=== PATIENT | male | born 1990 | race Hispanic/Latino ===

== ENCOUNTER → 2022-04-14 | Outpatient (CLI) | payer OTHER | LOC: M RAD 07:45 | PROVIDERS: ATTEND Physician Assistant | DX: M84.361A Stress fracture, right tibia, initial encounter for fracture (principal); M84.362A Stress fracture, left tibia, initial encounter for fracture; X58.XXXA Exposure to other specified factors, initial encounter; Y92.9 Unspecified place or not applicable | CPT/HCPCS: 78315; A9503 ==

== ENCOUNTER 2024-07-23 12:51 | Emergency (ER) | payer OTHER ==
[~2024-07-23] VITALS: Ht 172.7 cm; Wt 63.6 kg
[2024-07-23] MEDS ORDERED: ibuprofen PO (13:20)
[2024-07-23 14:00] LABS: HEMATOCRIT 48.1 % (42.0-52.0); HEMOGLOBIN 15.7 g/dl (13.5-17.5); MEAN CORPUSCULAR HEMOGLOBIN 29.8 pg (27.0-33.0); MEAN CORPUSCULAR HGB CONC 32.6 g/dl (32.0-36.5); MEAN CORPUSCULAR VOLUME 91.3 fl (80.0-96.0); PLATELET COUNT, AUTOMATED 221 10^3/uL (150-450); RED BLOOD COUNT 5.27 10^6/uL (4.30-6.10); WHITE BLOOD COUNT 7.5 10^3/uL (4.0-10.0)
[2024-07-23 14:26] LABS: ETHYL ALCOHOL (ETHANOL) < 0.003 % (0.000-0.010)
[2024-07-23 14:28] LABS: ALBUMIN 4.1 G/DL (3.2-5.2); ALKALINE PHOSPHATASE 82 U/L (40-129); ALT/SGPT 36 U/L (7.0-40); AST/SGOT 30 U/L (<34); BILIRUBIN,DIRECT 0.1 MG/DL (<0.4); BILIRUBIN,TOTAL 0.3 MG/DL (0.3-1.2); BLOOD UREA NITROGEN 10 MG/DL (9-23); CALCIUM LEVEL 9.2 MG/DL (8.5-10.1); CARBON DIOXIDE LEVEL 31 MMOL/L (20-31); CHLORIDE LEVEL 105 MMOL/L (98-107); GLOMERULAR FILTRATION RATE > 60.0 (>60); GLUCOSE, FASTING 93 MG/DL (60-100); POTASSIUM SERUM 4.2 MMOL/L (3.5-5.1); SALICYLATE LEVEL < 3.0 MG/DL (<30); SODIUM LEVEL 140 MMOL/L (136-145); TOTAL PROTEIN 7.3 G/DL (5.7-8.2)
[2024-07-23 14:30] LABS: THYROID STIMULATING HORMONE 1.175 uIU/ML (0.55-4.78)
[2024-07-23 14:37] LABS: AMPHETAMINES LEVEL URINE NEGATIVE (NEGATIVE); BARBITURATES URINE NEGATIVE (NEGATIVE); BENZODIAZEPINES URINE NEGATIVE (NEGATIVE); CANNABINOIDS URINE NEGATIVE (NEGATIVE); COCAINE METABOLITE URINE NEGATIVE (NEGATIVE); METHADONE URINE NEGATIVE (NEGATIVE); OPIATES URINE NEGATIVE (NEGATIVE); PHENCYCLIDINE URINE NEGATIVE (NEGATIVE)
[2024-07-23 15:24] VITALS: BP 125/67; TEMP 97.4; O2SAT 98
== END 2024-07-23 15:41 | disposition home or self-care (01) ==
LOC: M ED 12:51
DX: F43.0 Acute stress reaction (principal); Z79.1 Long term (current) use of non-steroidal anti-inflammatories (NSAID)

== ENCOUNTER 2024-11-18 08:05 | Inpatient (IN) | payer OTHER ==
[~2024-11-18] VITALS: Ht 172.7 cm; Wt 68.2 kg
[~2024-11-18 08:05] MED LIST: ibuprofen PO
[2024-11-18 08:37] LABS: PLATELET COUNT, AUTOMATED 217 10^3/uL (150-450)
[2024-11-18] MEDS ORDERED: VITA100093 PO (08:37)
[2024-11-18] MEDS ORDERED: FLUO-290 PO (08:37)
[2024-11-18] MEDS ORDERED: HOME MED LIST COMPLETE! XX SCH (08:55)
[2024-11-18 09:06] LABS: ETHYL ALCOHOL (ETHANOL) < 0.003 % (0.000-0.010)
[2024-11-18 09:07] LABS: SALICYLATE LEVEL < 3.0 MG/DL (<30)
[2024-11-18 09:08] LABS: ALT/SGPT 23 U/L (7.0-40); AST/SGOT 25 U/L (<34); CALCIUM LEVEL 9.7 MG/DL (8.5-10.1); CARBON DIOXIDE LEVEL 24 MMOL/L (20-31); CHLORIDE LEVEL 106 MMOL/L (98-107); CREATININE FOR GFR 1.30 MG/DL (0.70-1.30); GLOMERULAR FILTRATION RATE 74.9 (>60); POTASSIUM SERUM 3.9 MMOL/L (3.5-5.1); SODIUM LEVEL 144 MMOL/L (136-145)
[2024-11-18 13:44] LABS: AMPHETAMINES LEVEL URINE NEGATIVE (NEGATIVE); BARBITURATES URINE NEGATIVE (NEGATIVE); BENZODIAZEPINES URINE NEGATIVE (NEGATIVE); CANNABINOIDS URINE NEGATIVE (NEGATIVE); COCAINE METABOLITE URINE NEGATIVE (NEGATIVE); METHADONE URINE NEGATIVE (NEGATIVE); OPIATES URINE NEGATIVE (NEGATIVE); PHENCYCLIDINE URINE NEGATIVE (NEGATIVE)
[2024-11-18] MEDS ORDERED: IBUPROFEN 400 MG TAB PO PRN (20:30)
[2024-11-18] MEDS ORDERED: MOM 30 ML SUSPENSION UDC PO PRN (20:30)
[2024-11-18] MEDS ORDERED: MAALOX 30 ML SUSP *UDC PO PRN (20:30)
[2024-11-19] MEDS: traZODone 50 MG TAB PO PRN (01:37)
[2024-11-19] MEDS: ACETAMINOPHEN 325 MG TAB PO PRN (01:37)
[2024-11-19 06:35] VITALS: BP 140/71; TEMP 98.3; O2SAT 98
[2024-11-19] MEDS: VITAMIN D 1,000 INTERNATIONAL UNITS TABLET PO SCH (09:38)
[2024-11-19 15:22] VITALS: BP 108/84; TEMP 97.1; O2SAT 97
[2024-11-20 06:27] VITALS: BP 113/58; TEMP 97.6; O2SAT 98
[2024-11-20] MEDS: FLUoxetine 20 MG CAP PO SCH (08:02)
[2024-11-21 06:11] VITALS: BP 108/59; TEMP 97.1; O2SAT 98
[2024-11-21 15:01] VITALS: BP 115/58; TEMP 97.1; O2SAT 97
[2024-11-22 06:55] VITALS: BP 103/59; TEMP 97.3; O2SAT 97
[2024-11-22 15:17] VITALS: BP 119/59; TEMP 98; O2SAT 99
[2024-11-23 06:10] VITALS: BP 95/51; TEMP 97.6; O2SAT 96
[2024-11-23] MEDS: FLUoxetine 20 MG CAP PO SCH (08:57)
[2024-11-23 14:00] VITALS: BP 112/67; TEMP 97.7; O2SAT 98
[2024-11-23] MEDS: DOXEPIN 25 MG CAP PO SCH (20:00)
[2024-11-24 06:33] VITALS: BP_SYST 111; BP_SYST 138; BP_DIAS 57; BP_DIAS 85; TEMP 97.7; O2SAT 98
[2024-11-24 14:30] VITALS: BP 131/68; TEMP 97.5; O2SAT 98
[2024-11-25 06:08] VITALS: BP 102/59; TEMP 97.8; O2SAT 98
[2024-11-25 16:22] VITALS: BP 130/55; TEMP 98.1; O2SAT 97
[2024-11-25] MEDS: DOXEPIN 25 MG CAP PO SCH (20:21)
[2024-11-26 07:02] VITALS: BP 118/58; TEMP 97.3; O2SAT 100
[2024-11-26 15:15] VITALS: BP 127/64; TEMP 98.3; O2SAT 97
[2024-11-27 06:47] VITALS: BP 113/54; TEMP 98.3; O2SAT 99
[2024-11-27 15:23] VITALS: BP 123/75; TEMP 97.4; O2SAT 99
[2024-11-28 06:34] VITALS: BP 131/63; TEMP 97; O2SAT 100
[2024-11-28 15:43] VITALS: BP 120/75; TEMP 98.3; O2SAT 95
[2024-11-29] MEDS ORDERED: HYDR-3363 PO (00:29)
[2024-11-29] MEDS ORDERED: FLUO-365 PO (00:29)
[2024-11-29] MEDS ORDERED: DOXE25CA PO (00:29)
[2024-11-29 06:48] VITALS: BP 100/62; TEMP 98.5; O2SAT 100
== END 2024-11-29 12:12 | disposition home or self-care (01) | DRG 885 ==
LOC: M ED 08:05 → M ED INP 20:27 → M PSY 11-19 01:18
PROVIDERS: ADMIT Psychiatry & Neurology Neurology; ATTEND Psychiatry & Neurology Neurology
DX: F33.1 Major depressive disorder, recurrent, moderate (principal); R45.851 Suicidal ideations; F41.9 Anxiety disorder, unspecified; J45.909 Unspecified asthma, uncomplicated; Z79.899 Other long term (current) drug therapy; Z91.51 Personal history of suicidal behavior

== ENCOUNTER 2025-01-20 14:22 | Inpatient (IN) | payer OTHER ==
[~2025-01-20] VITALS: Ht 172.7 cm; Wt 70.0 kg
[~2025-01-20 14:22] MED LIST changes: +DOXE25CA PO; +FLUO-290 PO; +FLUO-365 PO; +HYDR-3363 PO; +VITA100093 PO
[2025-01-20] MEDS ORDERED: TRAZ-252 PO (14:40)
[2025-01-20] MEDS ORDERED: OLAN15TA69 PO (14:40)
[2025-01-20 15:09] LABS: PLATELET COUNT, AUTOMATED 199 10^3/uL (150-450)
[2025-01-20 15:43] LABS: ALT/SGPT 36 U/L (7.0-40); AST/SGOT 55 U/L (<34); CALCIUM LEVEL 9.0 MG/DL (8.5-10.1); CARBON DIOXIDE LEVEL 26 MMOL/L (20-31); CHLORIDE LEVEL 106 MMOL/L (98-107); CREATININE FOR GFR 0.96 MG/DL (0.70-1.30); GLOMERULAR FILTRATION RATE > 90.0 (>60); POTASSIUM SERUM 4.0 MMOL/L (3.5-5.1); SALICYLATE LEVEL < 3.0 MG/DL (<30); SODIUM LEVEL 141 MMOL/L (136-145)
[2025-01-20 15:45] LABS: AMPHETAMINES LEVEL URINE NEGATIVE (NEGATIVE); BARBITURATES URINE NEGATIVE (NEGATIVE); BENZODIAZEPINES URINE NEGATIVE (NEGATIVE); COCAINE METABOLITE URINE NEGATIVE (NEGATIVE); ETHYL ALCOHOL (ETHANOL) < 0.003 % (0.000-0.010)
[2025-01-20 15:46] LABS: CANNABINOIDS URINE NEGATIVE (NEGATIVE); METHADONE URINE NEGATIVE (NEGATIVE); OPIATES URINE NEGATIVE (NEGATIVE); PHENCYCLIDINE URINE NEGATIVE (NEGATIVE)
[2025-01-20] MEDS ORDERED: FLUO-365 PO (17:25)
[2025-01-20] MEDS ORDERED: HOME MED LIST COMPLETE! XX SCH (17:25)
[2025-01-20] MEDS ORDERED: MOM 30 ML SUSPENSION UDC PO PRN (18:50)
[2025-01-20] MEDS ORDERED: MAALOX 30 ML SUSP *UDC PO PRN (18:50)
[2025-01-20 22:03] VITALS: BP 112/63; TEMP 97.1; O2SAT 99
[2025-01-20] MEDS: traZODone 50 MG TAB PO PRN (22:42)
[2025-01-20] MEDS: IBUPROFEN 400 MG TAB PO PRN (22:43)
[2025-01-21 06:32] VITALS: BP 93/46; TEMP 98.2; O2SAT 97
[2025-01-21] MEDS: FLUoxetine 20 MG CAP PO SCH (09:37)
[2025-01-21] MEDS: VITAMIN D 1,000 INTERNATIONAL UNITS TABLET PO SCH (09:37)
[2025-01-21] MEDS: ACETAMINOPHEN 325 MG TAB PO PRN (13:24)
[2025-01-21 15:20] VITALS: BP 129/65; TEMP 97.8; O2SAT 96
[2025-01-22 06:41] VITALS: BP 108/59; TEMP 97.9; O2SAT 98
[2025-01-22] MEDS ORDERED: OLANZapine ORAL DISINTEGRATING TAB 5MG PO PRN (10:05)
[2025-01-22] MEDS: busPIRone 5 MG TAB PO SCH (10:14)
[2025-01-22 15:14] VITALS: BP 126/70; TEMP 97.8; O2SAT 95
[2025-01-23 06:51] VITALS: BP 98/56; TEMP 97.7; O2SAT 98
[2025-01-23] MEDS: BENZTROPINE 0.5 MG TAB PO ONE (10:07)
[2025-01-23 16:49] VITALS: BP 132/68; TEMP 97.6; O2SAT 97
[2025-01-24 06:31] VITALS: BP 108/72; TEMP 97.7; O2SAT 98
[2025-01-24 15:35] VITALS: BP 121/60; TEMP 97.8; O2SAT 97
[2025-01-25 06:45] VITALS: BP 148/86; TEMP 97.9; O2SAT 97
[2025-01-25 15:44] VITALS: BP 121/68; TEMP 97.3; O2SAT 95
[2025-01-26 06:35] VITALS: BP 117/54; TEMP 98.3; O2SAT 96
[2025-01-26 15:48] VITALS: BP 128/56; TEMP 97.9; O2SAT 96
[2025-01-27 06:37] VITALS: BP 99/65; TEMP 98.7; O2SAT 99
[2025-01-27] MEDS ORDERED: FLUO40CA PO (12:50)
[2025-01-27] MEDS ORDERED: ABIL1TAB11 PO (12:50)
[2025-01-27] MEDS ORDERED: TRAZ-252 PO (12:50)
== END 2025-01-27 14:45 | disposition home or self-care (01) | DRG 885 ==
LOC: M ED 14:22 → M ED INP 18:46 → M PSY 22:01
PROVIDERS: ADMIT Psychiatry & Neurology Neurology; ATTEND Psychiatry & Neurology Neurology
DX: F33.2 Major depressive disorder, recurrent severe without psychotic features (principal); R45.851 Suicidal ideations; R45.850 Homicidal ideations; J45.909 Unspecified asthma, uncomplicated; D72.829 Elevated white blood cell count, unspecified; R74.01 Elevation of levels of liver transaminase levels

== ENCOUNTER 2025-03-12 12:47 | Inpatient (IN) | payer OTHER ==
[~2025-03-12] VITALS: Ht 172.7 cm; Wt 63.6 kg
[~2025-03-12 12:47] MED LIST changes: +ABIL1TAB11 PO; +FLUO40CA PO; +OLAN15TA69 PO; +TRAZ-252 PO
[2025-03-12 13:46] LABS: PLATELET COUNT, AUTOMATED 281 10^3/uL (150-450)
[2025-03-12 14:04] LABS: PHENCYCLIDINE URINE NEGATIVE (NEGATIVE)
[2025-03-12 14:05] LABS: AMPHETAMINES LEVEL URINE NEGATIVE (NEGATIVE); BARBITURATES URINE NEGATIVE (NEGATIVE); BENZODIAZEPINES URINE NEGATIVE (NEGATIVE); CANNABINOIDS URINE NEGATIVE (NEGATIVE); COCAINE METABOLITE URINE NEGATIVE (NEGATIVE); METHADONE URINE NEGATIVE (NEGATIVE); OPIATES URINE NEGATIVE (NEGATIVE)
[2025-03-12 14:07] LABS: ETHYL ALCOHOL (ETHANOL) 0.005 % (0.000-0.010)
[2025-03-12 14:09] LABS: SALICYLATE LEVEL < 3.0 MG/DL (<30)
[2025-03-12 14:10] LABS: ALT/SGPT 28 U/L (7.0-40); AST/SGOT 20 U/L (<34); CALCIUM LEVEL 9.2 MG/DL (8.5-10.1); CARBON DIOXIDE LEVEL 29 MMOL/L (20-31); CHLORIDE LEVEL 105 MMOL/L (98-107); CREATININE FOR GFR 0.99 MG/DL (0.70-1.30); GLOMERULAR FILTRATION RATE > 90.0 (>60); POTASSIUM SERUM 3.9 MMOL/L (3.5-5.1); SODIUM LEVEL 143 MMOL/L (136-145)
[2025-03-12] MEDS ORDERED: MAALOX 30 ML SUSP *UDC PO PRN (14:50)
[2025-03-12] MEDS ORDERED: MOM 30 ML SUSPENSION UDC PO PRN (14:50)
[2025-03-12] MEDS ORDERED: OLAN1TAB20 PO (15:14)
[2025-03-12] MEDS ORDERED: FLUO40CA PO (15:14)
[2025-03-12] MEDS ORDERED: ARIP1TAB6 PO (15:14)
[2025-03-12] MEDS ORDERED: HOME MED LIST COMPLETE! XX SCH (15:15)
[2025-03-12 17:09] VITALS: BP 126/71; TEMP 97.7; O2SAT 98
[2025-03-13 07:02] VITALS: BP 100/50; TEMP 97.7
[2025-03-13] MEDS: FLUZONE VACCINE TRI PF(25-26) 0.5ML SYRINGE IM.IMMUN ONE (09:10)
[2025-03-13] MEDS: buPROPion **XL** 150 MG TABLET PO SCH (11:01)
[2025-03-13] MEDS: risperiDONE 0.5 MG TAB PO SCH (11:01)
[2025-03-13 15:20] VITALS: BP 110/60; TEMP 96.9; O2SAT 99
[2025-03-13 20:32] VITALS: BP 110/60; TEMP 96.9; O2SAT 99
[2025-03-13] MEDS: traZODone 50 MG TAB PO PRN (20:55)
[2025-03-14 06:49] VITALS: BP 97/55; TEMP 97.9; O2SAT 97
[2025-03-14] MEDS ORDERED: PSEUDOEPHEDRINE 30 MG TAB PO PRN (09:05)
[2025-03-14 15:50] VITALS: BP 113/63; TEMP 97.5; O2SAT 97
[2025-03-15 06:31] VITALS: BP 114/55; TEMP 97.6; O2SAT 98
[2025-03-15 15:45] VITALS: BP 115/67; TEMP 97.6; O2SAT 97
[2025-03-16 06:25] VITALS: BP 100/53; TEMP 98.8; O2SAT 100
[2025-03-16 09:25] VITALS: BP 117/65
[2025-03-16 18:39] VITALS: BP 126/61; TEMP 97.6; O2SAT 95
[2025-03-17 06:42] VITALS: BP 107/59; TEMP 98.5; O2SAT 98
[2025-03-17] MEDS: ACETAMINOPHEN 325 MG TAB PO PRN (08:55)
[2025-03-17 16:22] VITALS: BP 130/69; TEMP 97.3; O2SAT 97
[2025-03-17] MEDS: RISPERIDONE 1 MG TAB PO SCH (20:32)
[2025-03-17] MEDS: IBUPROFEN 400 MG TAB PO PRN (20:33)
[2025-03-18 06:43] VITALS: BP 114/60; TEMP 98.3; O2SAT 96
[2025-03-18 17:05] VITALS: BP 120/73; TEMP 97.9; O2SAT 99
[2025-03-19 06:29] VITALS: BP 113/54; TEMP 98.4; O2SAT 95
[2025-03-19 16:23] VITALS: BP 117/65; TEMP 97.1; O2SAT 98
[2025-03-20 06:39] VITALS: BP 112/62; TEMP 97.3; O2SAT 98
[2025-03-20] MEDS: buPROPion **XL** 150 MG TABLET PO SCH (08:32)
[2025-03-20 16:06] VITALS: BP 111/66; TEMP 97.4; O2SAT 100
[2025-03-21 06:34] VITALS: BP 135/75; TEMP 98.5; O2SAT 95
[2025-03-21 16:18] VITALS: BP 124/60; TEMP 98.1; O2SAT 96
[2025-03-22 06:30] VITALS: BP 114/60; TEMP 98; O2SAT 97
[2025-03-22 14:41] VITALS: BP 124/79; TEMP 97.8; O2SAT 98
[2025-03-23 06:15] VITALS: BP 113/56; TEMP 98.4; O2SAT 97
[2025-03-23 15:48] VITALS: BP 121/71; TEMP 98.5; O2SAT 96
[2025-03-23] MEDS ORDERED: BUPR150T12 PO (23:16)
[2025-03-23] MEDS ORDERED: TRAZ-252 PO (23:16)
[2025-03-23] MEDS ORDERED: RISP-105 PO (23:16)
[2025-03-24 06:37] VITALS: BP 123/71; TEMP 98.5; O2SAT 98
== END 2025-03-24 10:36 | disposition home or self-care (01) | DRG 885 ==
LOC: M ED 12:47 → M ED INP 14:49 → M PSY 17:07
PROVIDERS: ADMIT General Practice; ATTEND General Practice
DX: F33.1 Major depressive disorder, recurrent, moderate (principal); R45.851 Suicidal ideations; F41.0 Panic disorder [episodic paroxysmal anxiety]; R45.850 Homicidal ideations; Z79.899 Other long term (current) drug therapy; M25.551 Pain in right hip; F41.1 Generalized anxiety disorder